=== PATIENT | female | born 1950 | race Caucasian/White ===

== ENCOUNTER 2016-10-14 10:38 | Day surgery (SDC) | payer MEDICARE, BC ==
--- NOTE | 2016-10-13 21:28 | HP ---
CC: Dr. Brandi Ware; Dr. Michell Nava * STAT ADMITTING HISTORY AND PHYSICAL: DATE OF ADMISSION: 10/14/16 ADMITTING DIAGNOSES: 1. Bilateral hydronephrosis. 2. Advanced ovarian carcinoma. SURGICAL PROCEDURE: 1. Cystoscopy. 2. Bilateral retrograde. 3. Bilateral stent insertion. 4. Possible balloon dilation. SURGEON: Dr. Meier. HISTORY OF PRESENT ILLNESS: Irena Baca is a 66-year-old lady with ovarian carcinoma originally diagnosed in 2013. She had undergone total abdominal hysterectomy and bilateral salpingo-oophorectomy, followed by chemotherapy and has been getting chemotherapy for the last three years. Recent imaging study revealed bilateral severe hydronephrosis, more marked on the right side secondary to retroperitoneal adenopathy. Dr. Ware requested bilateral stent placement and she has now been brought in for the same. PAST MEDICAL HISTORY: Significant for: 1. Ovarian cancer in diagnosed in 2013. 2. Hypertension. 3. Depression. PAST SURGICAL HISTORY: 1. Significant for total abdominal hysterectomy and bilateral salpingo- oophorectomy for ovarian cancer in 2013. 2. Cataract surgery. 3. Tubal ligation. MEDICATIONS ON ADMISSION: 1. Valsartan 12.5 mg a day. 2. Citalopram 40 mg daily. 3. Potassium chloride 20 mEq daily. 4. Vitamin D 2000 International Units daily. ALLERGIES: No known drug allergies. SOCIAL HISTORY: She is a nonsmoker. REVIEW OF SYSTEMS: She denies any chest pain or shortness of breath. There is no history of diabetes mellitus. PHYSICAL EXAMINATION GENERAL: Reveals a pleasant middle-aged lady. VITAL SIGNS: Blood pressure is 108/72; pulse 84 per minute regular, temperature 97, oxygen saturation 96% on room air. LUNGS: Clear bilaterally. CARDIOVASCULAR: Regular rate and rhythm. S1, S2. She has a power port in the right anterior chest wall. ABDOMEN: There is mild bilateral flank tenderness. IMAGING STUDIES: I reviewed the imaging studies and agreed with the bilateral hydronephrosis more pronounced on the right side. IMPRESSION: I had a detailed discussion with Irena regarding the diagnosis of bilateral hydronephrosis and regarding the surgical procedure of bilateral stent insertion. I also explained to her that if the lymph nodes continue to enlarge that they could obstruct the ureter even with indwelling stents and also explained a small percentage of possibility of not being able to place stents and requiring nephrostomy tubes. All of her questions were answered. PLAN: Cystoscopy, bilateral retrograde, bilateral stent insertion and possible balloon dilatation. [id number]/[facility] #: [id number] LINN
[~2016-10-14 10:38] MED LIST: Buffered Lidocaine 0.9% SYRIN* 5 ML/SYR SYRINGE INTRADERM ONE; Sodium Citrate/Citric Acid* 15 ML UDC PO ONE
[2016-10-14] MEDS ORDERED: cefTRIAXone(*) 2 GM ADDV.VIAL IVPB ONE (10:44)
[2016-10-14] MEDS ORDERED: Buffered Lidocaine 0.9% SYRIN* 5 ML/SYR SYRINGE ONE (10:44)
[2016-10-14] MEDS ORDERED: Sodium Citrate/Citric Acid* 15 ML UDC ONE (10:44)
[2016-10-14] MEDS ORDERED: Ondansetron INJ* 2 MG/ML VIAL ONE (12:18)
[2016-10-14] MEDS ORDERED: Propofol* 10 MG/ML 20 ML BTL IV PUSH ONE (12:18)
[2016-10-14] MEDS ORDERED: fentaNYL* 50 MCG/ML 5 ML VIAL (250 MCG VIAL) ONE (12:18)
[2016-10-14] MEDS ORDERED: Lidocaine 2% PF * 5 ML VIAL ONE (12:18)
[2016-10-14] MEDS ORDERED: Midazolam* 1 MG/ML 5 ML VIAL (5 MG) ONE (12:19)
[2016-10-14] MEDS ORDERED: Iohexol 180 (CONTRAST) 10 ML SDV IV ONE ×2 (12:19→12:41)
[2016-10-14] MEDS ORDERED: oxyCODONE/Acetamin 5/325 MG* TAB PO PRN (12:51)
[2016-10-14] MEDS ORDERED: HYDROmorphone* 1 MG/ML 1 ML SYR IV PRN (12:51)
[2016-10-14] MEDS ORDERED: Scopolamine 1.5 mg* PATCH TRANSDERM PRN (12:51)
[2016-10-14] MEDS ORDERED: DiMENhydriNATE IV* 50 MG/ML VIAL IV PUSH PRN (12:51)
[2016-10-14] MEDS ORDERED: Ondansetron INJ* 2 MG/ML VIAL IV PRN (12:51)
[2016-10-14] MEDS ORDERED: fentaNYL* 50 MCG/ML 2 ML VIAL (100 MCG VIAL) IV PRN (12:51)
--- NOTE | 2016-10-14 13:48 | RAD ---
INDICATION: Bilateral stent insertion, history of ovarian carcinoma. COMPARISON: Comparison is made with a prior PET/CT study from October 09, 2016. TECHNIQUE: 16 seconds of intermittent fluoroscopic guidance were provided and 13 spot films of the abdomen were obtained. FINDINGS: Initial images demonstrate marked distention of the right renal pelvis and calyces consistent with moderate to severe hydronephrosis. Subsequently balloon catheters were placed within the right ureter proximally and distally over a guidewire. There is moderate dilatation of the left renal pelvis and calyces. Subsequently a balloon catheter was placed over a guidewire in the left ureter. Subsequently there is placement of bilateral double-J stent catheters which demonstrate normal course. IMPRESSION: INTRAOPERATIVE CONTROL FILMS. CPT II Codes: 6045F
[2016-10-14 15:09] VITALS: BP 122/77
--- NOTE | 2016-10-15 12:40 | OP ---
CC: Michell Nava MD; Brandi Ware MD * DATE OF OPERATION: 10/14/16 - [facility] DATE OF : 48 SURGEON: Jose Meier MD ANESTHESIOLOGIST: Dr. Jones. ANESTHESIA: General. PRE-OP DIAGNOSES: 1. Bilateral hydronephrosis and proximal hydroureter. 2. Advanced ovarian carcinoma. POST-OP DIAGNOSES: 1. Bilateral hydronephrosis and proximal hydroureter. 2. Advanced ovarian carcinoma. OPERATIVE PROCEDURE: 1. Cystoscopy. 2. Bilateral retrograde pyelograms. 3. Bilateral ureteral balloon dilatation. 4. Bilateral stent insertion. INDICATIONS: Irena Baca is a 66-year-old lady with advanced ovarian carcinoma and a recent diagnosis of bilateral hydronephrosis. OPERATIVE FINDINGS: 1. Normal appearing bladder with some extrinsic impression noted on posterior bladder wall and dome consistent with pelvic masses. 2. Bilateral severe hydronephrosis, right greater than left with proximal hydroureter. POSTOPERATIVE CONDITION: Stable. COMPLICATIONS: None. STENT USED: 8.5-American 28-cm silicone stents, right and left ureter. DESCRIPTION OF PROCEDURE: After induction of general anesthesia, patient was placed in dorsal lithotomy position. Sequential compression devices were in place and functioning. Initial cystoscopy revealed normally located right and left ureteral orifices, extrinsic impression was noted in the posterior bladder wall and dome consistent with pelvic masses. A right retrograde pyelogram revealed severe hydronephrosis with proximal hydroureter; balloon dilatation of the proximal, mid, and distal ureter was successfully carried out under fluoroscopic monitoring, and an 8.5 American 28 cm silicone stent was then introduced with good proximal and distal positioning obtained. Attention was directed to the left side. Once again, left hydronephrosis was noted and the left proximal ureter was fairly tortuous. Once again, successful balloon dilatation of the ureter was carried out and an 8.5-American 28 cm silicone stent was placed. The patient tolerated the procedure satisfactorily and was transferred back to recovery area in stable condition. [id number]/[facility] #: [id number] MTDD
[2016-10-17] MEDS ORDERED: Scopolomine PATCH Remove* 1 NOTE MISC PATCH OFF ONE (12:52)
== END 2016-10-14 14:52 | disposition home or self-care (01) ==
LOC: OR 10:38
PROVIDERS: ATTEND Urology
DX: N13.30 Unspecified hydronephrosis (principal); N13.4 Hydroureter; Z96.0 Presence of urogenital implants; C56.9 Malignant neoplasm of unspecified ovary; I10 Essential (primary) hypertension; F32.9 Major depressive disorder, single episode, unspecified; Z90.710 Acquired absence of both cervix and uterus; Z90.722 Acquired absence of ovaries, bilateral
CPT/HCPCS: 74420; A9270-GY; C1876; J0696; J2250; J2405; J2704; J3010

== ENCOUNTER 2017-04-21 07:32 | Day surgery (SDC) | payer MEDICARE, BC ==
--- NOTE | 2017-03-19 07:41 | HP ---
CC: Dr. Nava; Dr. Ware * ADMITTING HISTORY AND PHYSICAL: DATE OF ADMISSION: 03/31/17 ADMITTING DIAGNOSES: 1. Advanced ovarian carcinoma. 2. Bilateral hydronephrosis. PLANNED PROCEDURE: Cystoscopy, bilateral retrogrades and bilateral ureteral stent change. SURGEON: Jose Meier MD HISTORY OF PRESENT ILLNESS: Irena Baca is a 66-year-old lady with advanced ovarian carcinoma who was noted to have bilateral hydronephrosis and had undergone placement of bilateral ureteral stents in September of 2016. She is now being brought in for stent replacement. PAST MEDICAL HISTORY: Significant for: 1. Advanced ovarian carcinoma. 2. Hypertension. 3. Depression. MEDICATIONS ON ADMISSION: Include: 1. Citalopram 40 mg a day. 2. Valsartan 12.5 mg a day. 3. Potassium chloride 20 mEq daily. 4. Melatonin q.h.s. She is also currently getting chemotherapy for the ovarian cancer. ALLERGIES: No known drug allergies. SOCIAL HISTORY: Smoking history: She is a nonsmoker. PHYSICAL EXAMINATION GENERAL: Reveals a pleasant elderly lady. VITAL SIGNS: Blood pressure is 110/70, pulse 89 per minute and regular, temperature 96.5, oxygen saturation 98% on room air. LUNGS: Clear bilaterally. CARDIOVASCULAR EXAM: Regular rate and rhythm, S1, S2. ABDOMEN: Soft with mild bilateral flank tenderness. She has a PowerPort in the right anterior chest wall. IMPRESSION: A 66-year-old lady with advanced ovarian carcinoma causing bilateral hydronephrosis. PLAN: Planned procedure is cystoscopy bilateral retrogrades and bilateral ureteral stent change. [id number]/[facility] #: [id number] [facility]
[~2017-04-21 07:32] MED LIST changes: +Dexamethasone IV* 4 MG/ML 1 ML (4 MG) IV SLOW PU ONE; +Famotidine IV* 10 MG/ML 2 ML (20 mg) IV ONE
[2017-04-21] MEDS ORDERED: Sodium Citrate/Citric Acid* 15 ML UDC ONE (07:52)
[2017-04-21] MEDS ORDERED: Buffered Lidocaine 0.9% SYRIN* 5 ML/SYR SYRINGE ONE (07:52)
[2017-04-21] MEDS ORDERED: cefTRIAXone(*) 2 GM ADDV.VIAL IVPB ONE (07:54)
[2017-04-21] MEDS ORDERED: Iohexol 180 (CONTRAST) 10 ML SDV IV ONE (08:58)
[2017-04-21] MEDS ORDERED: DiMENhydriNATE IV* 50 MG/ML VIAL IV PUSH PRN (09:07)
[2017-04-21] MEDS ORDERED: fentaNYL* 50 MCG/ML 2 ML VIAL (100 MCG VIAL) IV PRN (09:07)
[2017-04-21] MEDS ORDERED: Naloxone* 0.4 MG/ML 1 ML VIAL IV PRN (09:07)
[2017-04-21] MEDS ORDERED: Lidocaine 2% PF * 5 ML VIAL ONE (09:19)
[2017-04-21] MEDS ORDERED: Propofol* 10 MG/ML 20 ML BTL IV PUSH ONE (09:19)
[2017-04-21] MEDS ORDERED: fentaNYL* 50 MCG/ML 2 ML VIAL (100 MCG VIAL) ONE (09:20)
[2017-04-21] MEDS ORDERED: Phenylephrine INJ* 10 MG/ML 1 ML VIAL (10 MG) ONE (09:46)
[2017-04-21 10:58] VITALS: BP 123/87
--- NOTE | 2017-04-21 12:44 | RAD ---
INDICATION: Bilateral ureteral stent exchange COMPARISON: None FINDINGS: 13 seconds of fluoroscopy were provided for the urology department. Fluoroscopic spot imaging of the abdomen were obtained for operative control and show bilateral ureteral stent exchange. The collecting systems are nondilated. 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 CPT II Codes: 6045F (fluoro time doc)
--- NOTE | 2017-04-22 05:42 | OP ---
CC: Dr. Brandi Ware * DATE OF OPERATION: 04/21/17 - [facility] DATE OF : 48 SURGEON: Jose Alfredo Singh MD ANESTHESIOLOGIST: Dr. Brendon Patrick. ANESTHESIA: General. PRE-OP DIAGNOSES: 1. Metastatic ovarian carcinoma. 2. Bilaterally ureteral obstruction. 3. Status post placement bilateral ureteral stents. POST-OP DIAGNOSES: 1. Metastatic ovarian carcinoma. 2. Bilaterally ureteral obstruction. 3. Status post placement bilateral ureteral stents. OPERATIVE PROCEDURE: 1. Cystoscopy. 2. Bilateral retrograde pyelographies. 3. Bilateral ureteral stents exchange (black silicon, 24 cm, 8.5-German). INDICATION FOR PROCEDURE: Ms. Baca is a 66-year-old lady who has metastatic ovarian carcinoma that resulted in bilateral ureteral obstruction. Six months ago, she had placement of bilateral ureteral stents. She has been getting chemotherapy for her disease. She has done very well from the ureteral stents, having no uti's and no irritative bladder symptoms. Considering the stents have been in place for the last 6 months the patient is brought in for bilateral ureteral stents exchange. PATHOLOGY: At cystoscopy, the bladder mucosa looked normal. There were no suspicious bladder lesions seen. The distal limbs of the ureteral stents were seen coming from the right and the left orifices. There was minimal reaction of the bladder wall from the ureteral stents. Bilateral retrograde pyelographies showed no hydronephrosis. There was resistance to the introduction of the stents in the distal ureters likely at the sites of the ureteral obstruction. DESCRIPTION OF PROCEDURE: After successful general anesthesia, the patient was placed in the lithotomy position and was prepped and draped for cystoscopy. Cystoscopy was performed. The bladder was inspected and the above findings were noted. Under fluoroscopy guidance, the distal limb of the right ureteral stent was pulled out to the level of the urethral meatus. A flexible tip guidewire was introduced into the lumen of the stent and positioned in the renal pelvis. Retrograde pyelography was performed. A black silicon stent, 24 cm long, 8.5-German was then placed with the proximal end coiling in the renal pelvis and the distal end coiling inside the bladder. Exactly the same procedure was performed on the left side. There was prompt drainage of contrast from both kidneys and there was no extravasation noted. The patient tolerated the procedures well and left the operating room in good condition. [id number]/[facility] #: [id number] LINN
== END 2017-04-21 10:58 | disposition home or self-care (01) ==
LOC: OR 07:32
PROVIDERS: ATTEND Urology
DX: N13.5 Crossing vessel and stricture of ureter without hydronephrosis (principal); C56.9 Malignant neoplasm of unspecified ovary; C78.6 Secondary malignant neoplasm of retroperitoneum and peritoneum; I10 Essential (primary) hypertension; F32.9 Major depressive disorder, single episode, unspecified
CPT/HCPCS: 74420; A9270-GY; C1876; J0696; J2704; J3010